=== PATIENT | female | born 1965 | race Caucasian/White ===

== ENCOUNTER 2021-11-15 19:42 | Inpatient (IN) | payer MEDICARE, MEDICAID ==
[~2021-11-15] VITALS: Ht 167.6 cm; Wt 72.2 kg
[2021-11-15 20:23] LABS: BASOPHILS % 0.6 % (0.0-2.0); EOSINOPHILS % 2.3 % (0.0-5.0); HEMATOCRIT. 38.7 % (36.0-48.0); HEMOGLOBIN. 12.9 g/dL (12.0-16.0); LYMPHOCYTES % 38.5 % (20.0-50.0); MEAN CORPUSCULAR HEMOGLOBIN 29.1 pg (28.0-32.0); MEAN CORPUSCULAR VOLUME 87.2 fL (81.0-99.0); MEAN PLATELET VOLUME 7.5 fl (7.4-10.4); MONOCYTES % 8.6 % (2.0-8.0); PLATELET 192 x1000/uL (130-400); RED BLOOD CELL COUNT 4.43 mill/uL (4.2-5.4); RED CELL DISTRIBUTION WIDTH 14.4 % (11.6-14.6)
[2021-11-15 20:32] LABS: CHLORIDE 103 mEq/L (98-107)
[2021-11-15] MEDS: NITROGLYCERIN 0.4MG TABLET SL SL PRN (20:37)
[2021-11-16] MEDS: NITROGLYCERIN 0.4MG TABLET SL SL PRN (00:02)
[2021-11-16 08:00] VITALS: BP 128/66
[2021-11-16 09:57] VITALS: BP 128/66
[2021-11-16] MEDS ORDERED: METF-874 PO (10:49)
[2021-11-16] MEDS ORDERED: HYDR12.54 PO (10:49)
[2021-11-16] MEDS ORDERED: LEVO150T8 PO (10:49)
[2021-11-16] MEDS ORDERED: FAMO20TA8 PO (10:49)
[2021-11-16] MEDS ORDERED: CYCL25PO15 MT (10:49)
[2021-11-16] MEDS ORDERED: PARO-41 PO (10:49)
[2021-11-16] MEDS ORDERED: TRAZ-251 PO (10:49)
[2021-11-16] MEDS ORDERED: ACETAMINOPHEN 325MG TABLET PO PRN (11:00)
[2021-11-16] MEDS ORDERED: LORAZEPAM 0.5MG TABLET PO PRN (11:00)
[2021-11-16] MEDS ORDERED: DIPHENHYDRAMINE 50MG/ML VIAL IV PRN (11:00)
[2021-11-16] MEDS ORDERED: MAGNESIUM/ALUMINUM HYDROXIDE/SIMETHICONE 30ML UDC PO PRN (11:00)
[2021-11-16] MEDS ORDERED: NA PHOS,M-B/NA PHOS,DI-BA ENEMA 118ML PR PRN (11:00)
[2021-11-16] MEDS ORDERED: ACETAMINOPHEN 650MG SUPP PR PRN (11:00)
[2021-11-16] MEDS ORDERED: CLONIDINE 0.1MG TABLET PO PRN (11:00)
[2021-11-16] MEDS ORDERED: HYDROCODONE/ACETAMINOPHEN 5/325MG TABLET PO PRN (11:00)
[2021-11-16] MEDS ORDERED: DEXTROSE 50% WATER 50ML SYRINGE IV PRN (11:00)
[2021-11-16] MEDS ORDERED: ONDANSETRON HCL 4MG/2ML INJ IV PRN (11:00)
[2021-11-16] MEDS ORDERED: IPRATROPIUM/ALBUTEROL 0.5-3(2.5)MG/3ML NEB NEB PRN (11:00)
[2021-11-16] MEDS ORDERED: GUAIFENESIN 200MG/10ML SUGAR FREE UDC PO PRN (11:00)
[2021-11-16] MEDS ORDERED: MORPHINE SULFATE 2 MG/ML CPJ (NOT FOR IM USE) IV PRN (11:00)
[2021-11-16] MEDS ORDERED: DOCUSATE SODIUM 100MG CAPSULE PO PRN (11:00)
[2021-11-16] MEDS ORDERED: NALOXONE HCL 0.4MG/ML VIAL IV PRN (11:15)
[2021-11-16 12:24] VITALS: BP 137/61
[2021-11-16 12:34] LABS: CLARITY URINE CLEAR (CLEAR); COLOR URINE YELLOW (YELLOW); KETONES URINE NEGATIVE (NEGATIVE); LEUKOCYTE ESTERASE URINE NEGATIVE (NEGATIVE); NITRITE URINE NEGATIVE (NEGATIVE); OCCULT BLOOD URINE NEGATIVE (NEGATIVE); PH URINE 7.5 (4.5-8.0); PROTEIN URINE NEGATIVE (NEGATIVE); SPECIFIC GRAVITY URINE 1.017 (1.005-1.030); UROBILINOGEN URINE 0.2 E.U./dL (0.2-1.0)
[2021-11-16] MEDS: INSULIN LISPRO 100 UNITS/ML SUBCUT SCH ×3 (12:40→20:08)
[2021-11-16] MEDS: BLOOD SUGAR DIAGNOSTIC STRIP TEST SCH ×3 (12:53→20:08)
[2021-11-16 13:01] LABS: *AMPHETAMINES SCREEN URINE NEGATIVE (NEGATIVE); *BARBITURATES SCREEN URINE NEGATIVE (NEGATIVE); *BENZODIAZEPINES SCREEN URINE NEGATIVE (NEGATIVE); *COCAINE SCREEN URINE NEGATIVE (NEGATIVE)
[2021-11-16 13:02] LABS: CANNABINOID URINE SCREEN NEGATIVE (NEGATIVE); METHADONE URINE SCREEN NEGATIVE (NEGATIVE); OPIATES URINE SCREEN NEGATIVE (NEGATIVE); PHENCYCLIDINE URINE SCREEN NEGATIVE (NEGATIVE)
[2021-11-16 14:28] LABS: CHLORIDE 105 mEq/L (98-107)
[2021-11-16 14:35] LABS: BASOPHILS % 0.4 % (0.0-2.0); EOSINOPHILS % 2.5 % (0.0-5.0); HEMATOCRIT. 36.9 % (36.0-48.0); HEMOGLOBIN. 12.7 g/dL (12.0-16.0); LYMPHOCYTES % 37.7 % (20.0-50.0); MEAN CORPUSCULAR HEMOGLOBIN 29.8 pg (28.0-32.0); MEAN CORPUSCULAR VOLUME 86.7 fL (81.0-99.0); MONOCYTES % 12.2 % (2.0-8.0); NEUTROPHILS % 47.2 % (40.0-76.0); PLATELET 181 x1000/uL (130-400); RED BLOOD CELL COUNT 4.26 mill/uL (4.2-5.4); RED CELL DISTRIBUTION WIDTH 14.3 % (11.6-14.6)
[2021-11-16 14:36] LABS: CREATINE KINASE 81 IU/L (26-192)
[2021-11-16 14:38] LABS: CREATINE KINASE MB FRACTION < 1.0 ng/mL (0.5-3.6); D-DIMER 0.25 mg/L FEU (<0.50); PROTHROMBIN TIME 10.6 sec (9.6-11.0)
[2021-11-16] MEDS ORDERED: PNEUMOCOCCAL 23-VAL P-SAC VAC 0.5 ML IM ONE (15:00)
[2021-11-16] MEDS ORDERED: CYCLOBENZAPRINE MT PRN (15:00)
[2021-11-16] MEDS ORDERED: CYCLOBENZAPRINE 10MG TABLET PO PRN (15:15)
[2021-11-16] MEDS ORDERED: REGADENOSON 0.4 MG/5 ML IV NR (15:15)
[2021-11-16] MEDS: DEXT 5%/0.9% NACL 1,000 ML IV SCH (16:10)
[2021-11-16 16:20] VITALS: BP 131/63
[2021-11-16 20:00] VITALS: BP 133/74
[2021-11-16] MEDS: METOPROLOL TARTRATE 25MG TABLET PO SCH (20:34)
[2021-11-16 22:19] LABS: CREATINE KINASE 68 IU/L (26-192)
[2021-11-16 22:20] LABS: CREATINE KINASE MB FRACTION 1.2 ng/mL (0.5-3.6)
[2021-11-17] VITALS: BP 115/53
[2021-11-17 04:00] VITALS: BP 115/75
[2021-11-17] MEDS: DEXT 5%/0.9% NACL 1,000 ML IV SCH (04:22)
[2021-11-17] MEDS: BLOOD SUGAR DIAGNOSTIC STRIP TEST SCH ×2 (06:20→12:23)
[2021-11-17] MEDS: INSULIN LISPRO 100 UNITS/ML SUBCUT SCH ×2 (06:21→12:23)
[2021-11-17] MEDS ORDERED: LEVOTHYROXINE SODIUM 150MCG TABLET PO SCH (07:10)
[2021-11-17 07:26] LABS: BASOPHILS % 0.5 % (0.0-2.0); EOSINOPHILS % 2.5 % (0.0-5.0); HEMATOCRIT. 37.6 % (36.0-48.0); HEMOGLOBIN. 12.7 g/dL (12.0-16.0); LYMPHOCYTES % 40.9 % (20.0-50.0); MEAN CORPUSCULAR HEMOGLOBIN 29.5 pg (28.0-32.0); MEAN CORPUSCULAR VOLUME 87.4 fL (81.0-99.0); MEAN PLATELET VOLUME 7.9 fl (7.4-10.4); MONOCYTES % 10.9 % (2.0-8.0); NEUTROPHILS % 45.2 % (40.0-76.0); PLATELET 184 x1000/uL (130-400); RED BLOOD CELL COUNT 4.31 mill/uL (4.2-5.4); RED CELL DISTRIBUTION WIDTH 14.2 % (11.6-14.6)
[2021-11-17 07:34] LABS: CHLORIDE 108 mEq/L (98-107)
[2021-11-17 07:47] LABS: LDL CHOLESTEROL 116 mg/dL (5-100)
[2021-11-17 07:49] LABS: T4 FREE 1.08 ng/dL (0.76-1.46)
[2021-11-17 07:50] LABS: HDL CHOLESTEROL 41 mg/dL (40-59)
[2021-11-17 08:09] VITALS: BP 133/65
[2021-11-17] MEDS: METOPROLOL TARTRATE 25MG TABLET PO SCH (08:19)
[2021-11-17] MEDS ORDERED: ASPIRIN 81MG EC TABLET PO SCH (09:00)
[2021-11-17] MEDS ORDERED: REGADENOSON 0.4 MG/5 ML IV ONE (11:09)
[2021-11-17 12:22] VITALS: BP 128/66
[2021-11-17] MEDS ORDERED: ATOR20TA MT (13:22)
[2021-11-17] MEDS ORDERED: METO25TA6 MT (13:22)
[2021-11-17] MEDS ORDERED: ASPI-1497 MT (13:22)
[2021-11-17 14:46] VITALS: BP 128/66
[2021-11-17] MEDS ORDERED: ATORVASTATIN CALCIUM 20MG TABLET PO SCH (21:00)
== END 2021-11-17 15:50 | disposition home or self-care (01) | DRG 206 ==
LOC: ER 19:42 → 8WST 11-16 01:32 → EDBEDREQTM 11-16 01:37 → EDBEDREQ 11-16 01:37 → EDBEDREQDT 11-16 01:37 → 8WST 11-16 09:53
PROVIDERS: ADMIT Internal Medicine; ATTEND Internal Medicine
DX: M94.0 Chondrocostal junction syndrome [Tietze] (principal); I10 Essential (primary) hypertension; E11.9 Type 2 diabetes mellitus without complications; M19.90 Unspecified osteoarthritis, unspecified site; Z20.822 Contact with and (suspected) exposure to COVID-19; E78.5 Hyperlipidemia, unspecified; I27.20 Pulmonary hypertension, unspecified; Z85.850 Personal history of malignant neoplasm of thyroid; Z85.42 Personal history of malignant neoplasm of other parts of uterus; Z82.49 Family history of ischemic heart disease and other diseases of the circulatory system; Z79.890 Hormone replacement therapy; Z79.899 Other long term (current) drug therapy
CPT/HCPCS: 36415; 71045; 78452; 80048; 80053; 80061; 80305; 81003; 82550; 82553; 82962; 83036; 84439; 84443; 84484; 85025; 85379; 87426; 90732; 93005; 93017; 93306; 93970; 99285; A9500; J2785; J7042

== ENCOUNTER 2025-06-23 18:31 | Inpatient (IN) | payer BC, MEDICAID, MEDICARE ==
[~2025-06-23] VITALS: Ht 152.4 cm; Wt 72.6 kg
[~2025-06-23 18:31] MED LIST: ASPI-1497 MT; ATOR20TA MT; CYCL25PO15 MT; FAMO20TA8 PO; LEVO150T8 PO; METF-1150 PO; METO25TA6 MT; PARO-41 PO; TRAZ-251 PO
[2025-06-23 18:37] VITALS: O2SAT 98
[2025-06-23] MEDS: MORPHINE SULFATE 4 MG/ML INJ (FOR IV/IM USE) IV ONE ×2 (19:43→21:31)
[2025-06-23] MEDS: ONDANSETRON HCL 4MG/2ML INJ IV ONE (19:43)
[2025-06-23] MEDS: SODIUM CHLORIDE 0.9% 1,000 ML IV ONE (20:22)
[2025-06-23 20:49] LABS: BASOPHILS % 0.2 % (0.0-2.0); EOSINOPHILS % 0.2 % (0.0-5.0); HEMATOCRIT. 40.2 % (36.0-48.0); HEMOGLOBIN. 13.2 g/dL (12.0-16.0); LYMPHOCYTES % 20.7 % (20.0-50.0); MEAN PLATELET VOLUME 7.6 fl (7.4-10.4); MONOCYTES % 8.8 % (2.0-8.0); NEUTROPHILS % 70.1 % (40.0-76.0); PLATELET 205 x1000/uL (130-400); RED BLOOD CELL COUNT 4.50 mill/uL (4.2-5.4); RED CELL DISTRIBUTION WIDTH 16.4 % (11.6-14.6)
[2025-06-23 21:00] LABS: INR 1.0
[2025-06-23 21:02] LABS: CREATININE 0.7 mg/dL (0.6-1.0); UREA NITROGEN BLOOD 9 mg/dL (9-23)
[2025-06-23 21:03] LABS: ASPARTATE AMINOTRANSFERASE 24 IU/L (<34)
[2025-06-23 21:04] LABS: BILIRUBIN DIRECT 0.5 mg/dL (<=3.0); BILIRUBIN TOTAL 1.6 mg/dL (0.1-1.0); PROTEIN TOTAL 6.7 g/dL (6.0-8.3)
[2025-06-23 21:11] LABS: TROPONIN I HIGH SENSITIVITY 140 ng/L (3.0-34)
[2025-06-23] MEDS: POTASSIUM CHLORIDE 20MEQ TABLET SR PO SCH (21:30)
[2025-06-23 23:43] LABS: TROPONIN I HIGH SENSITIVITY 470 ng/L (3.0-34)
[2025-06-24] MEDS: ASPIRIN 325MG EC TABLET PO ONE (00:35)
[2025-06-24] MEDS: LABETALOL 5MG/ML 4ML INJ IV ONE (00:35)
[2025-06-24] MEDS: ONDANSETRON HCL 4MG/2ML INJ IV NR (00:36)
[2025-06-24] MEDS ORDERED: ACETAMINOPHEN 325MG TABLET PO PRN (01:15)
[2025-06-24] MEDS ORDERED: GUAIFENESIN 200MG/10ML SUGAR FREE UDC PO PRN (01:15)
[2025-06-24] MEDS ORDERED: IPRATROPIUM/ALBUTEROL 0.5-3(2.5)MG/3ML NEB HHN PRN (01:15)
[2025-06-24] MEDS ORDERED: DOCUSATE SODIUM 100MG CAPSULE PO PRN (01:15)
[2025-06-24] MEDS ORDERED: DEXTROSE 50% WATER 50ML SYRINGE IV PRN (01:15)
[2025-06-24] MEDS ORDERED: MAGNESIUM/ALUMINUM HYDROXIDE/SIMETHICONE 30ML UDC PO PRN (01:15)
[2025-06-24] MEDS: ACETAMINOPHEN 325MG TABLET PO PRN (02:27)
[2025-06-24] MEDS: PANTOPRAZOLE SODIUM 40 MG/VIAL IV SCH (02:27)
[2025-06-24 02:30] VITALS: BP 167/83; PULSE 72; RESP 18; TEMP 36.1956
[2025-06-24] MEDS: LACTATED RINGERS 1,000 ML IV SCH (02:53)
[2025-06-24] MEDS: CLONIDINE 0.1MG TABLET PO PRN (02:59)
[2025-06-24] MEDS: ENOXAPARIN 80MG/0.8ML SYR SUBCUT SCH (03:01)
[2025-06-24 04:00] VITALS: BP 162/71; PULSE 76; RESP 16; TEMP 36.2; O2SAT 95
[2025-06-24] MEDS ORDERED: GABAPENTIN 300MG CAPSULE PO SCH (06:00)
[2025-06-24] MEDS: LEVOTHYROXINE SODIUM 125MCG TABLET PO SCH (06:28)
[2025-06-24] MEDS: KETOROLAC 15MG/ML VIAL IV PRN (06:29)
[2025-06-24] MEDS: HYDRALAZINE HCL 25MG TABLET PO SCH (06:29)
[2025-06-24] MEDS: INSULIN LISPRO 100 UNITS/ML SUBCUT SCH (06:33)
[2025-06-24] MEDS: BLOOD SUGAR DIAGNOSTIC STRIP TEST SCH (06:33)
[2025-06-24 08:00] VITALS: BP 103/53; PULSE 91; RESP 18; TEMP 37.1; O2SAT 97
[2025-06-24 12:00] VITALS: BP 106/50; PULSE 68; RESP 18; TEMP 36.5; O2SAT 97
[2025-06-24] MEDS: AMLODIPINE 5MG TABLET PO SCH (12:00)
[2025-06-24] MEDS: POLYETHYLENE GLYCOL 3350 (17GM) 1 DOSE PACK PO SCH (15:00)
[2025-06-24] MEDS: VISCOUS LIDOCAINE 2% 15 ML UDC MM NR (15:00)
[2025-06-24] MEDS: MAGNESIUM/ALUMINUM HYDROXIDE/SIMETHICONE 30ML UDC PO NR (15:00)
[2025-06-24] MEDS: BISACODYL 10MG SUPP PR NR (15:01)
[2025-06-24 16:00] VITALS: BP 153/68; PULSE 65; RESP 18; TEMP 36.6; O2SAT 97
[2025-06-24 16:04] LABS: CLARITY URINE CLEAR (CLEAR); COLOR URINE YELLOW (YELLOW); GLUCOSE URINE NEGATIVE (NEGATIVE); KETONES URINE NEGATIVE (NEGATIVE); LEUKOCYTE ESTERASE URINE NEGATIVE (NEGATIVE); NITRITE URINE NEGATIVE (NEGATIVE); OCCULT BLOOD URINE NEGATIVE (NEGATIVE); PH URINE 7.0 (4.5-8.0); PROTEIN URINE NEGATIVE (NEGATIVE); SPECIFIC GRAVITY URINE 1.006 (1.005-1.030); UROBILINOGEN URINE 0.2 E.U./dL (0.2-1.0)
[2025-06-24 16:20] LABS: *AMPHETAMINES SCREEN URINE NEGATIVE (NEGATIVE); *BARBITURATES SCREEN URINE NEGATIVE (NEGATIVE); *BENZODIAZEPINES SCREEN URINE NEGATIVE (NEGATIVE); *COCAINE SCREEN URINE NEGATIVE (NEGATIVE); METHADONE URINE SCREEN NEGATIVE (NEGATIVE)
[2025-06-24 16:21] LABS: CANNABINOID URINE SCREEN NEGATIVE (NEGATIVE); ECSTASY MDMA SCREEN URINE NEGATIVE (NEGATIVE); OPIATES URINE SCREEN NEGATIVE (NEGATIVE); PHENCYCLIDINE URINE SCREEN NEGATIVE (NEGATIVE)
[2025-06-24] MEDS: PROCHLORPERAZINE MALEATE 10MG TABLET PO NR (16:55)
[2025-06-24 20:00] VITALS: BP 125/52; PULSE 73; RESP 16; TEMP 37.4; O2SAT 95
[2025-06-24] MEDS ORDERED: ATORVASTATIN CALCIUM 40MG TABLET PO SCH (21:00)
[2025-06-24] MEDS: PANTOPRAZOLE 40MG DR TABLET PO SCH (21:43)
[2025-06-24] MEDS: SENNOSIDES/DOCUSATE SOD 8.6/50MG TABLET PO SCH (21:43)
[2025-06-25] VITALS: BP 135/71; PULSE 64; RESP 17; TEMP 36.7; O2SAT 98
[2025-06-25 04:00] VITALS: BP 125/52; PULSE 73; RESP 16; TEMP 37.4; O2SAT 95
[2025-06-25] MEDS: ONDANSETRON HCL 4MG/2ML INJ IV PRN (06:54)
[2025-06-25] MEDS: HYDRALAZINE 20MG/ML VIAL IV NR (07:51)
[2025-06-25 08:00] VITALS: BP 142/71; PULSE 86; RESP 18; TEMP 36.8; O2SAT 95
[2025-06-25] MEDS: HYDRALAZINE HCL 50MG TABLET PO SCH (09:00)
[2025-06-25] MEDS: ASPIRIN 81MG TABLET PO SCH (09:42)
[2025-06-25] MEDS: METOPROLOL TARTRATE 25MG TABLET PO SCH (09:42)
[2025-06-25 12:00] VITALS: BP 108/54; PULSE 63; RESP 18; TEMP 36.5; O2SAT 96
[2025-06-25 14:03] LABS: BASOPHILS % 0.1 % (0.0-2.0); EOSINOPHILS % 0.1 % (0.0-5.0); HEMATOCRIT. 39.8 % (36.0-48.0); HEMOGLOBIN. 12.8 g/dL (12.0-16.0); LYMPHOCYTES % 31.8 % (20.0-50.0); MEAN PLATELET VOLUME 8.0 fl (7.4-10.4); MONOCYTES % 7.1 % (2.0-8.0); NEUTROPHILS % 60.9 % (40.0-76.0); PLATELET 215 x1000/uL (130-400); RED BLOOD CELL COUNT 4.39 mill/uL (4.2-5.4); RED CELL DISTRIBUTION WIDTH 17.5 % (11.6-14.6)
[2025-06-25 14:15] LABS: CREATININE 0.7 mg/dL (0.6-1.0)
[2025-06-25 14:16] LABS: CREATININE 0.7 mg/dL (0.6-1.0); TRIGLYCERIDE 111 mg/dL (0-150); UREA NITROGEN BLOOD 14 mg/dL (9-23)
[2025-06-25 14:17] LABS: ASPARTATE AMINOTRANSFERASE 24 IU/L (<34); LDL CHOLESTEROL 76 mg/dL (5-100); UREA NITROGEN BLOOD 13 mg/dL (9-23)
[2025-06-25 14:18] LABS: BILIRUBIN DIRECT 0.7 mg/dL (<=3.0); BILIRUBIN TOTAL 2.4 mg/dL (0.1-1.0); PHOSPHORUS 4.3 mg/dL (2.5-4.9); PROTEIN TOTAL 6.5 g/dL (6.0-8.3)
[2025-06-25 14:20] LABS: T4 FREE 1.87 ng/dL (0.89-1.76)
[2025-06-25 14:30] LABS: TROPONIN I HIGH SENSITIVITY 592 ng/L (3.0-34)
[2025-06-25] MEDS ORDERED: HYDROXYZINE 25MG TABLET PO PRN (14:30)
[2025-06-25 16:00] VITALS: BP 119/61; PULSE 71; RESP 18; TEMP 36.6; O2SAT 100
[2025-06-25] MEDS ORDERED: HYDR-3735 PO (16:09)
[2025-06-25] MEDS ORDERED: HYDR50TA39 PO (16:09)
[2025-06-25] MEDS ORDERED: AMLO5TAB88 PO (16:09)
[2025-06-25 16:40] VITALS: BP 119/61; PULSE 71; RESP 18; TEMP 97.9
[2025-06-26] MEDS ORDERED: SERTRALINE HCL 25MG TABLET PO SCH (09:00)
== END 2025-06-25 17:22 | disposition home or self-care (01) | DRG 281 ==
LOC: ER 18:31 → 5WST 23:33 → EDBEDREQTM 23:56 → EDBEDREQ 23:56 → ENRESERV 06-24 00:54
PROVIDERS: ADMIT Internal Medicine; ATTEND Internal Medicine
DX: I21.4 Non-ST elevation (NSTEMI) myocardial infarction (principal); F33.1 Major depressive disorder, recurrent, moderate; I16.1 Hypertensive emergency; N39.0 Urinary tract infection, site not specified; G43.909 Migraine, unspecified, not intractable, without status migrainosus; K21.9 Gastro-esophageal reflux disease without esophagitis; E11.9 Type 2 diabetes mellitus without complications; I10 Essential (primary) hypertension; E87.5 Hyperkalemia; E87.6 Hypokalemia; F41.9 Anxiety disorder, unspecified; K57.30 Diverticulosis of large intestine without perforation or abscess without bleeding; K59.00 Constipation, unspecified; E78.1 Pure hyperglyceridemia; E78.00 Pure hypercholesterolemia, unspecified; E89.0 Postprocedural hypothyroidism; Z86.73 Personal history of transient ischemic attack (TIA), and cerebral infarction without residual deficits; Z85.850 Personal history of malignant neoplasm of thyroid; Z85.41 Personal history of malignant neoplasm of cervix uteri; Z79.4 Long term (current) use of insulin; Z79.84 Long term (current) use of oral hypoglycemic drugs; Z88.0 Allergy status to penicillin; Z90.710 Acquired absence of both cervix and uterus
CPT/HCPCS: 36415; 71045; 71275; 74174; 76705; 80048; 80061; 80076; 80305; 80320; 81003; 82962; 83036; 83605; 83735; 83880; 84100; 84145; 84439; 84443; 84481; 84484; 85025; 87077; 87186; 93005; 93306; 99291; J0360; J1650; J1885; J2270; J2405; J2470; J3490; J7030; Q0164; G0480